=== PATIENT | female | born 1955 | race Caucasian/White ===

== ENCOUNTER 2022-12-20 23:47 | Emergency (ER) | payer MEDICAID, OTHER ==
[~2022-12-20] VITALS: Ht 152.4 cm; Wt 62.6 kg
[2022-12-21] MEDS ORDERED: ESCI5TAB PO (01:07)
[2022-12-21] MEDS ORDERED: LORA-258 PO (01:07)
[2022-12-21] MEDS ORDERED: LORAZEPAM 0.5 MG TABLET ONE (01:11)
[2022-12-21 01:19] VITALS: BP 135/75; TEMP 98; O2SAT 100
[2022-12-21] MEDS ORDERED: LORAZEPAM 0.5 MG TABLET PO ONE (01:30)
== END 2022-12-21 01:20 | disposition home or self-care (01) ==
LOC: ER 23:49
DX: F41.9 Anxiety disorder, unspecified (principal); Z79.899 Other long term (current) drug therapy